=== PATIENT | female | born 1990 | race Caucasian/White ===

== ENCOUNTER 2025-02-10 05:17 | Inpatient (IN) | payer BC, SELFPAY ==
[2025-02-10] MEDS: LR 1000 IV ×2 (05:30→06:28)
[2025-02-10 05:33] VITALS: BP 141/91; BMI 28.2
[2025-02-10 05:54] LABS: % Basophils 0.4 % (0-2); % Lymphocytes 23.6 % (20.5-51.1); % Monocytes 9.8 % (1.7-9.3); % Neutrophils 64.2 % (42.2-75.2); Absolute Eosinophils 0.1 10^3/uL (0-0.7); Absolute Immature Granulocytes 0.1 10^3/uL (0-0.05); Absolute Lymphocytes 2.4 10^3/uL (1.2-3.4); Absolute Neutrophils 6.4 10^3/uL (1.4-6.5); Hematocrit 36.4 % (37.0-47.0); Mean Platelet Volume 11.3 fL (7.4-10.4); Nucleated Red Blood Cells % 0 %; Platelet Count 198 10^3/uL (130-400); Red Cell Dist. Width 12.9 % (11.5-14.5)
[2025-02-10] MEDS: SUBLIMAZE 100 MCG EPIDURAL (06:03)
[2025-02-10] MEDS: FENTANYL/BUPIVACAINE 100 EPIDURAL (06:04)
[2025-02-10] MEDS: MOTRIN 600 MG PO ×2 (13:15→20:25)
--- NOTE | 2025-02-10 16:38 | DOWNTIME ---
There was a [email or web address] Downtime on 02/10/2025 from 1230 to 02/10/2025 at 1550. Downtime documentation of patient's care, including medication administrations, has been reconciled in the electronic record per guidelines. Refer to the
patient's paper chart under the miscellaneous tab to see printed paper medication records and downtime forms.
[2025-02-10] MEDS: MOTRIN PO (16:49)
[2025-02-11 04:37] LABS: Hematocrit 28.1 % (37.0-47.0); Hemoglobin 9.6 g/dL (12.0-16.0)
[2025-02-11] MEDS: MOTRIN 600 MG PO (06:15)
[2025-02-11] MEDS: PRENATAL PLUS 1 TABLET PO (08:00)
[2025-02-11] MEDS: SENOKOT-S 1 TABLET PO (08:01)
[2025-02-11] MEDS: FEOSOL 325 MG PO (11:38)
[2025-02-12 12:15] LABS: Syphilis/T. pallidum Ab Reflex Negative (Negative)
== END 2025-02-11 16:03 | disposition home or self-care (01) | DRG 807 ==
LOC: LDRP 05:17
PROVIDERS: Obstetrics & Gynecology; ADMITTING PHYSICIAN Obstetrics & Gynecology
PROC: 10E0XZZ Delivery of Products of Conception, External Approach (ICD-10-PCS; 2025-02-10)
PROC: 10907ZC Drainage of Amniotic Fluid, Therapeutic from Products of Conception, Via Natural or Artificial Opening (ICD-10-PCS; 2025-02-10)
PROC: 0HQ9XZZ Repair Perineum Skin, External Approach (ICD-10-PCS; 2025-02-10)
DX: O70.0 First degree perineal laceration during delivery (principal); Z37.0 Single live birth; Z3A.38 38 weeks gestation of pregnancy
CPT/HCPCS: 85014; 85018; 85025; 86780; 86850; 86900; 86901